=== PATIENT | male | born 1985 | race Caucasian/White ===

== ENCOUNTER 2025-07-10 12:41 | Emergency (ER) | payer MEDICAID ==
[2025-07-10 12:58] VITALS: PULSE 74
[2025-07-10 13:14] VITALS: BP 160/126
== END 2025-07-10 13:15 | disposition home or self-care (01) ==
LOC: MW.ED 12:41
DX: Z02.89 Encounter for other administrative examinations (principal); I10 Essential (primary) hypertension; E11.9 Type 2 diabetes mellitus without complications; Z79.899 Other long term (current) drug therapy; Z79.84 Long term (current) use of oral hypoglycemic drugs; Z88.8 Allergy status to other drugs, medicaments and biological substances; Z88.5 Allergy status to narcotic agent; Z75.3 Unavailability and inaccessibility of health-care facilities
CPT/HCPCS: 99283; A9270